=== PATIENT | female | born 1950 | race Two or more races ===

== ENCOUNTER 2020-10-12 06:40 | Day surgery (SDC) | payer OTHER | END 2020-10-12 10:35 | disposition home or self-care (01) | LOC: AMB-ENDOS 06:40 | PROVIDERS: ATTEND Surgery | DX: K62.89 Other specified diseases of anus and rectum (principal); K64.8 Other hemorrhoids; Z20.828 Contact with and (suspected) exposure to other viral communicable diseases ==

== ENCOUNTER 2021-04-21 05:55 | Day surgery (SDC) | payer OTHER ==
[~2021-04-21 05:55] MED LIST: ATORVASTATIN CA20 MG PO; CIMBALTA PO; COZAAR50 MG PO; DIAZEPAM10 MG PO; GABAPENTIN800 M1 PO; TRAZ PO; ZANAFLEX4 M1 PO; [UNRECOGNIZED DRUG - OTHER] PO; [UNRECOGNIZED DRUG - OTHER] PO
[2021-04-21] MEDS ORDERED: ULTRACET PO (10:27)
[2021-04-21] MEDS ORDERED: DICLOFENAC SODI75 MG PO (10:29)
== END 2021-04-21 12:20 | disposition home or self-care (01) ==
LOC: CIR.AMB 05:55
PROVIDERS: ATTEND Surgery
DX: R15.9 Full incontinence of feces (principal); Z20.822 Contact with and (suspected) exposure to COVID-19
CPT/HCPCS: 64581; C1778

== ENCOUNTER 2021-05-05 10:00 | Day surgery (SDC) | payer OTHER ==
[~2021-05-05 10:00] MED LIST changes: +DICLOFENAC SODI75 MG PO; +ULTRACET PO
[2021-05-05] MEDS ORDERED: ULTRACET PO (13:57)
[2021-05-05] MEDS ORDERED: DICLOFENAC SODI75 MG PO (13:57)
== END 2021-05-05 15:45 | disposition home or self-care (01) ==
LOC: CIR.AMB 10:00
PROVIDERS: ATTEND Surgery
DX: R15.9 Full incontinence of feces (principal); Z20.822 Contact with and (suspected) exposure to COVID-19
CPT/HCPCS: 64590; 95971; L8679

== ENCOUNTER 2021-08-15 05:50 | Day surgery (SDC) | payer OTHER ==
[~2021-08-15 05:50] MED LIST changes: +ALENDRONATE SOD70 MG PO; +VALIUM PO; +VITAMIN D3 PO
[2021-08-15] MEDS ORDERED: DICLOFENAC SODI75 MG PO (08:44)
[2021-08-15] MEDS ORDERED: PERCOCET 5-3251 EACH PO (08:44)
[2021-08-15] MEDS ORDERED: RECTICARE30 GM TOP (08:45)
== END 2021-08-15 12:20 | disposition home or self-care (01) ==
LOC: CIR.AMB 05:50
PROVIDERS: ATTEND Surgery
DX: K64.4 Residual hemorrhoidal skin tags (principal); K64.8 Other hemorrhoids